=== PATIENT | female | born 1960 | race Caucasian/White ===

== ENCOUNTER 2018-06-20 20:27 | Emergency (ER) | payer OTHER ==
[~2018-06-20] VITALS: Ht 167.6 cm; Wt 65.8 kg
[2018-06-20 21:40] VITALS: BP 142/79
== END 2018-06-20 21:35 | disposition home or self-care (01) ==
LOC: ER 20:27
DX: S61.211A Laceration without foreign body of left index finger without damage to nail, initial encounter (principal); Z90.710 Acquired absence of both cervix and uterus; Z90.89 Acquired absence of other organs; Z90.49 Acquired absence of other specified parts of digestive tract; W26.0XXA Contact with knife, initial encounter; Y92.89 Other specified places as the place of occurrence of the external cause; Y93.89 Activity, other specified; Y99.8 Other external cause status